=== PATIENT | female | born 1985 | race Two or more races ===

== ENCOUNTER → 2017-06-17 | Outpatient (CLI) | payer OTHER, BC | END | disposition home or self-care (01) | LOC: HKI 13:50 | DX: O9A.219 Injury, poisoning and certain other consequences of external causes complicating pregnancy, unspecified trimester (principal); S39.012D Strain of muscle, fascia and tendon of lower back, subsequent encounter; Z3A.00 Weeks of gestation of pregnancy not specified; W18.09XD Striking against other object with subsequent fall, subsequent encounter; O26.899 Other specified pregnancy related conditions, unspecified trimester; M54.31 Sciatica, right side | CPT/HCPCS: Z7500 ==

== ENCOUNTER → 2018-01-05 | Outpatient (CLI) | payer OTHER | END | disposition home or self-care (01) | LOC: HKI 10:26 | DX: S86.912A Strain of unspecified muscle(s) and tendon(s) at lower leg level, left leg, initial encounter (principal); X58.XXXA Exposure to other specified factors, initial encounter | CPT/HCPCS: 73564; 73564-LT ==

== ENCOUNTER 2018-06-24 12:42 | Emergency (ER) | payer OTHER ==
[2018-06-24] MEDS: HYDROCODONE/APAP (5/325) TAB PO (14:13)
[2018-06-24] MEDS: ONDANSETRON (ODT) 4 MG TAB ODT (14:17)
== END 2018-06-24 16:07 | disposition home or self-care (01) ==
LOC: FTE 12:42
DX: S70.02XA Contusion of left hip, initial encounter (principal); R51 Headache; R11.0 Nausea; W10.9XXA Fall (on) (from) unspecified stairs and steps, initial encounter; Y92.9 Unspecified place or not applicable
CPT/HCPCS: 70450; 73630-LT; 81025; 99284-25